=== PATIENT | female | born 1960 | race Caucasian/White ===

== ENCOUNTER → 2024-03-15 | Day surgery (SDC) | payer OTHER ==
[2024-03-12 10:40] LABS: BASOPHILS # (AUTO) 0.1 (0.0-0.1); EOSINOPHILS # (AUTO) 0.1 (0.0-0.4); EOSINOPHILS % 1.3 % (0.0-6.0); HEMATOCRIT 42.9 % (34.2-44.1); HEMOGLOBIN 13.7 g/dL (12.0-16.0); LYMPHOCYTES # (AUTO) 2.3 (1.0-3.2); MEAN CORPUSCULAR HEMOGLOBIN 31.8 pg (28-32); MEAN CORPUSCULAR HGB CONC 31.9 g/dL (31-35); MEAN CORPUSCULAR VOLUME 99.5 fL (81-99); MONOCYTES # (AUTO) 0.4 (0.2-0.8); NEUTROPHILS # (AUTO) 3.1 (2.1-6.9); NEUTROPHILS % 52.4 % (38.7-80.0); PLATELET COUNT 209 x10e3/uL (140-360); RED BLOOD COUNT 4.31 x10e6/uL (3.6-5.1); RED CELL DISTRIBUTION WIDTH 13.3 % (11.7-14.4)
[~2024-03-15] MED LIST: ALBUTEROL1.25 MG/3 INH; ASPIRIN81 MG PO; ATORVASTATIN CA40 MG PO; AZITHROMYCIN250 MG PO; BENZONATATE200 MG PO; CLOPIDOGREL75 MG PO; LEVETIRACETAM500 MG PO; LISINOPRIL10 MG PO; MUCINEX600 MG PO; NEOSTIGMINE 1 MG/ML 10ML VIAL ONE; NIFEDIPINE20 MG; PHENYLEPHRINE HCL 1% 10 MG/ML VIAL ONE; PROAIR HFA INH8.5 GM INH; PROPOFOL IV EMULSION 50 ML IV ONE; SIMETHICONE 40 MG/0.6 ML BTL ONE; SODIUM CHLORIDE 0.9% 100 ML ONE; ZYRTEC10 M3 PO
[2024-03-15] MEDS: LACTATED RINGER'S 1,000 ML ONE (06:14)
[2024-03-15 07:23] VITALS: TEMP 97.2
[2024-03-15 07:53] VITALS: BP 143/72; PULSE 88; RESP 16; O2SAT 98
== END | disposition home or self-care (01) ==
LOC: OR 05:23
PROVIDERS: ATTEND Internal Medicine Gastroenterology
DX: Z43.1 Encounter for attention to gastrostomy (principal); K29.70 Gastritis, unspecified, without bleeding; K44.9 Diaphragmatic hernia without obstruction or gangrene; Z71.3 Dietary counseling and surveillance; Z71.89 Other specified counseling; I10 Essential (primary) hypertension; E78.5 Hyperlipidemia, unspecified; J44.9 Chronic obstructive pulmonary disease, unspecified; I69.344 Monoplegia of lower limb following cerebral infarction affecting left non-dominant side; F17.200 Nicotine dependence, unspecified, uncomplicated; Z88.6 Allergy status to analgesic agent; Z01.810 Encounter for preprocedural cardiovascular examination; Z01.812 Encounter for preprocedural laboratory examination; Z79.02 Long term (current) use of antithrombotics/antiplatelets; Z79.82 Long term (current) use of aspirin; Z79.899 Other long term (current) drug therapy
CPT/HCPCS: 36415; 43247; 85025; 93005; J2371; J2704; J2710; J7050; J7121; 43246